=== PATIENT | female | born 1970 | race Caucasian/White ===

== ENCOUNTER 2020-05-16 07:44 | Day surgery (SDC) | payer BC ==
[~2020-05-16] VITALS: Ht 174 cm; Wt 65.4 kg
[2020-05-16 08:10] VITALS: BP 111/74
[2020-05-16] MEDS ORDERED: SODIUM CHLORIDE 0.9% 1,000 ML IV SCH (08:12)
[2020-05-16 08:52] LABS: INTERNATIONAL NORMALIZED RATIO 0.97 (0.93-1.1); PROTHROMBIN TIME 10.3 Seconds (9.6-11.5)
[2020-05-16] MEDS ORDERED: NALOXONE 1 MG/ML, 2ML ONE (09:01)
[2020-05-16] MEDS ORDERED: FENTANYL PF 100 MCG/2ML ONE (09:01)
[2020-05-16] MEDS ORDERED: FLUMAZENIL 0.1 MG/1 ML, 5ML ONE (09:01)
[2020-05-16] MEDS ORDERED: MIDAZOLAM 1 MG/ML, 5ML ONE (09:01)
== END 2020-05-16 11:05 | disposition home or self-care (01) ==
LOC: OUT 07:44 → EDSTATUS 10:00 → OUT 11:05
PROVIDERS: ATTEND Internal Medicine Nephrology
DX: R80.9 Proteinuria, unspecified (principal); I12.9 Hypertensive chronic kidney disease with stage 1 through stage 4 chronic kidney disease, or unspecified chronic kidney disease; N18.3 Chronic kidney disease, stage 3 (moderate); R31.9 Hematuria, unspecified; Z72.89 Other problems related to lifestyle; Z79.899 Other long term (current) drug therapy; Z87.891 Personal history of nicotine dependence; Z98.890 Other specified postprocedural states
CPT/HCPCS: 36415; 50200; 77012; 85610; 88300; 99156; J2250; J3010; J7030; 99157; J2310